=== PATIENT | male | born 1965 | race Caucasian/White ===

== ENCOUNTER 2022-11-07 13:03 | Emergency (ER) | payer BC, MEDICARE, SELFPAY ==
[2022-11-07 13:04] VITALS: BP 129/78; PULSE 76; RESP 17; TEMP 36.6; O2SAT 96; BMI 29.5
[2022-11-07 13:20] VITALS: BP 133/80; PULSE 71; RESP 16; TEMP 36.7; O2SAT 95; BMI 29.5
--- NOTE | 2022-11-07 13:32 | EXP.UTC ---
Discharge Plan Disposition Patient Disposition: Home, Self-Care Condition: Good Prescriptions Prescriptions: No Action atorvastatin 10 mg tablet 10 mg PO HS sulfamethoxazole-trimethoprim 800-160 mg tablet 1 tab PO BID hydrocodone-acetaminophen [Lortab 7.5-325] 7.5-325 mg Tablet 1 tab PO BID PRN (Reason: BACK INJURY) morphine 15 mg Tablet 15 mg PO BID PRN (Reason: BACK INJURY) Referrals Follow up/Referrals: Enrique Cole [Primary Care Provider] - See instructions Herve Miller MD [Staff Physician] - See instructions Activity Restrictions/Add. Instructions Additional Instructions/Restrictions: Keep appointment with Dr Miller on Thursday11-12-22 at 9:15am. Keep appointment with PCP on Thursday. Do Dry dressing to right elbow twice a day. Wash site with soap and water. Keep area clean and dry. Clinical Impressions Clinical Impression: Other infective bursitis, right elbow Instructions Patient Instructions: How to Care for a Surgical Wound, Debridement of a Wound, Infection, or Burn, Cleaning Wounds With Drinkable Tap Water Discharge ED Provider: Pati Julian [facility] General Stated complaint: sore on right elbow Mode of Arrival: Ambulatory Source of Information: Patient Limitations: No Limitations Time Seen by Provider: 11/07/22 13:32 Description of Symptoms (Recalled from Triage Doc. by RN): PATIENT C/O ABSCESS TO RIGHT ELBOW WITH DRAINAGE X 4 DAYS. HE REPORTS HE WAS SEEN BY PCP YESTERDAY AND GIVEN ANTIBIOTICS, BUT WANTS TO MAKE SURE IT DOESN'T NEED DRAINED HEENT Symptoms (Recalled from RN notes): No Resp Symptoms (Recalled from RN notes): No Skin Symptoms (Recalled from RN notes): Yes MS Symptoms (Recalled from RN notes): No Functional Status (Recalled from RN notes): WNL History of Present Illness Provider Complaint: Pt states that he went to his PCP yesterday and was started on antibiotics. He states that he has an area on his elbow that has raised up and started oozing pus. He states that he feels like his elbow needs to be drained. Related Data Home Medications Medication Instructions Recorded Confirmed atorvastatin 10 mg tablet 10 mg PO HS Cholesterol 11/07/22 11/07/22 hydrocodone 7.5 mg-acetaminophen 1 tab PO BID PRN BACK INJURY 11/07/22 11/07/22 325 mg tablet morphine 15 mg immediate release 15 mg PO BID PRN BACK INJURY 11/07/22 11/07/22 tablet sulfamethoxazole 800 1 tab PO BID ABSCESS 11/07/22 11/07/22 mg-trimethoprim 160 mg tablet Allergies Allergy/AdvReac Type Severity Reaction Status Date / Time No Known Allergies Allergy Verified 11/07/22 13:32 Worker's Comp Is this a Worker's Comp case?: No [facility] Disclaimer: The information contained in this section may have been updated after the patient was seen, as this information can be updated by other users. Social History Smoking Status: Smoker, status unknown alcohol intake: current current occupational status: employed Travel in the last 8 weeks: None ROS Obtained: Yes All systems reviewed & no additional complaints except as documented Constitutional Constitutional: Reports system reviewed and no additional complaints, except as documented Eyes Eyes: Reports system reviewed and no additional complaints, except as documented ENT Ears, Nose, Mouth, and Throat: Reports system reviewed and no additional complaints, except as documented Cardiovascular Cardiovascular: Reports system reviewed and no additional complaints, except as documented Respiratory Respiratory: Reports system reviewed and no additional complaints, except as documented Gastrointestinal Gastrointestingal: Reports system reviewed and no additional complaints, except as documented Genitourinary Male Genitourinary: Reports system reviewed and no additional complaints, except as documented Musculoskeletal Musculoskeletal: Reports as per HPI, Reports arthralgias and Reports joint swelling Integumentary/Breasts Skin/Aby
--- NOTE | 2022-11-07 14:45 | PC.NURSE ---
DR. PICKETT AT BEDSIDE AT THIS TIME
--- NOTE | 2022-11-07 15:11 | EXP.OP.NOTE ---
Date of procedure: 11/07/22 Pre-op Diagnosis:: Right elbow bursitis with focal associated abscess Post-op Diagnosis:: Same Procedure performed:: Right elbow - incision and drainage of bursa and small associated abscess Surgeon:: Herve Miller MD Anesthesia: local Estimated blood loss (mL): 5 Operative findings:: Alternating serosanguineous and straw-colored fluid from bursa proper Focal shallow associated abscess without ongoing drainage Operative note:: After informed consent was obtained the patient was placed in a supine position in the urgent treatment center evaluation room. His right elbow was prepped with Betadine. After infiltration local anesthetic a 6 mm portion of overlying skin was sharply excised. A combination of serosanguineous and straw-colored fluid was noted from the bursa proper. Fluid was obtained for Gram stain/culture. The associated small focus of shallow abscess was opened in a similar manner. No additional fluid pockets noted. A dry dressing was secured in position. Condition: stable Disposition: no change Specimens:: Fluid for Gram stain/culture Complications:: No immediate
[2022-11-07 15:19] VITALS: BP 133/80; PULSE 71; RESP 16; TEMP 36.7; O2SAT 95
== END 2022-11-07 15:22 | disposition home or self-care (01) ==
PROVIDERS: Emergency Provider Nurse Practitioner Family; PCP Family Medicine
DX: M71.121 Other infective bursitis, right elbow (principal)
CPT/HCPCS: 10060; 87070; 87205; 99204; 99212; G0463